=== PATIENT | male | born 1955 | race Caucasian/White ===

== ENCOUNTER 2022-04-05 09:40 | Day surgery (SDC) | payer BC, MEDICARE ==
[2022-04-05] MEDS ORDERED: Metoprolol Tartrate 5 MG/5 ML SDV IV ONE (09:41)
[2022-04-05] MEDS ORDERED: Sodium Chloride 0.9% 10 ML Syringe FLUSH PRN (10:00)
[2022-04-05] MEDS ORDERED: Lactated Ringers 1,000 ML IV SCH (10:00)
[2022-04-05] MEDS ORDERED: Propofol 200 MG/20 ML SDV ONE (10:41)
[2022-04-05] MEDS ORDERED: Glycopyrrolate 0.2 MG/ML SDV ONE (10:41)
[2022-04-05] MEDS ORDERED: Midazolam 1 MG/ML 2 ML SDV ONE (10:41)
== END 2022-04-05 13:10 | disposition home or self-care (01) ==
LOC: KA.SDS 09:40
PROVIDERS: ATTEND Family Medicine
DX: D12.2 Benign neoplasm of ascending colon (principal); D12.8 Benign neoplasm of rectum; K21.9 Gastro-esophageal reflux disease without esophagitis; K64.8 Other hemorrhoids; K29.50 Unspecified chronic gastritis without bleeding; B96.81 Helicobacter pylori [H. pylori] as the cause of diseases classified elsewhere; K22.70 Barrett's esophagus without dysplasia; I10 Essential (primary) hypertension; G47.33 Obstructive sleep apnea (adult) (pediatric); J44.9 Chronic obstructive pulmonary disease, unspecified; E78.5 Hyperlipidemia, unspecified; E66.9 Obesity, unspecified; R73.03 Prediabetes; Z79.899 Other long term (current) drug therapy; Z79.82 Long term (current) use of aspirin; Z87.891 Personal history of nicotine dependence; Z68.35 Body mass index [BMI] 35.0-35.9, adult
CPT/HCPCS: 00813; 43239; 45380; 45385; J2250; J2704; J3490; J7120

== ENCOUNTER 2023-10-31 19:25 | Emergency (ER) | payer BC, MEDICARE, OTHER ==
[2023-10-31] MEDS ORDERED: Sodium Chloride 0.9% 10 ML Syringe FLUSH PRN (19:33)
[2023-10-31 20:01] LABS: BASOPHILS ABSOLUTE AUTO 0.02 10^3/uL (0.00-0.10); BASOPHILS PERCENT AUTO 0.2 % (0.0-1.0); EOSINOPHILS PERCENT AUTO 3.3 % (1.0-3.0); HEMATOCRIT 40.5 % (40.0-52.0); HEMOGLOBIN 13.6 g/dL (13.0-17.0); IMMATURE GRAN ABSOLUTE AUTO 0.01 10^3/uL (0.00-0.50); IMMATURE GRAN PERCENT AUTO 0.1 % (0.0-5.0); LYMPHOCYTES PERCENT AUTO 22.8 % (20.0-40.0); MEAN CORPUSCULAR HEMOGLOBIN 30.6 pg (27.0-31.0); MEAN CORPUSCULAR HGB CONC 33.6 g/dL (32.0-36.0); MEAN CORPUSCULAR VOLUME 91.2 fL (82.0-92.0); MEAN PLATELET VOLUME 9.2 fL (7.4-10.4); MONOCYTES ABSOLUTE AUTO 0.76 10^3/uL (0.10-0.80); MONOCYTES PERCENT AUTO 8.3 % (2.0-8.0); NEUTROPHILS ABSOLUTE AUTO 6.01 10^3/uL (2.50-7.00); NEUTROPHILS PERCENT AUTO 65.3 % (50.0-70.0); PLATELET COUNT,PLT 222 10^3/uL (150-400); RED BLOOD CELL COUNT 4.44 10^6/uL (4.50-6.00); RED CELL DISTRIBUTION WIDTH 12.5 % (11.5-14.5)
[2023-10-31 20:18] LABS: ALANINE AMINOTRANSFERASE,ALT 40 U/L (14-63); ALBUMIN 3.81 g/dL (3.40-5.00); ALKALINE PHOSPHATASE 81 U/L (46-116); ANION GAP 13.4 mmol/L (5-15); ASPARTATE AMNIOTRANSFERASE,AST 19 U/L (15-37); BILIRUBIN TOTAL 0.4 mg/dL (0.2-1.0); BLOOD UREA NITROGEN,BUN 21 mg/dL (7-18); CALCIUM 8.7 mg/dL (8.7-10.3); CARBON DIOXIDE,CO2 27.2 mmol/L (21.0-32.0); CHLORIDE,CL 99 mmol/L (98-107); CREATININE 0.91 mg/dL (0.51-1.17); EST CRCL DRUG DOSING (CG) 99.27 mL/min; GLUCOSE RANDOM 136 mg/dL (70-140); POTASSIUM,K 3.6 mmol/L (3.5-5.1); PROTEIN TOTAL,TP 7.1 g/dL (6.4-8.2); SODIUM,NA 136 mmol/L (136-145)
[2023-10-31 20:19] LABS: ESTIMATED GFR 92 mL/min (>=60)
== END 2023-10-31 20:39 | disposition home or self-care (01) ==
LOC: KA.ED 19:25
DX: M79.602 Pain in left arm (principal); J44.9 Chronic obstructive pulmonary disease, unspecified; Z79.82 Long term (current) use of aspirin; Z79.899 Other long term (current) drug therapy
CPT/HCPCS: 71045; 80053; 84484; 85025; 93010; 99284; J3490

== ENCOUNTER 2024-03-28 21:53 | Emergency (ER) | payer OTHER ==
[2024-03-28] MEDS: Cyclobenzaprine 10 MG Tab PO ONE (22:15)
== END 2024-03-28 22:21 | disposition home or self-care (01) ==
LOC: KA.ED 21:53
DX: M43.6 Torticollis (principal); J44.9 Chronic obstructive pulmonary disease, unspecified; E66.9 Obesity, unspecified; Z79.82 Long term (current) use of aspirin; Z79.899 Other long term (current) drug therapy; Z68.35 Body mass index [BMI] 35.0-35.9, adult
CPT/HCPCS: 99283; A9270-GY